=== PATIENT | female | born 1980 | race American Indian/Alaskan Native ===

== ENCOUNTER 2017-08-03 09:42 | Day surgery (SDC) | payer BC ==
[2016-11-26 11:15] VITALS: BMI 43.7
[2017-08-03] MEDS ORDERED: Sodium Chloride 0.9% 1,000 ML IV SCH (10:00)
[2017-08-03] MEDS ORDERED: Propofol 10 mg/ml Inj (20 ML) ONE (11:37)
[2017-08-03 12:43] VITALS: TEMP 98.1
[2017-08-03 14:30] VITALS: BP 108/56; PULSE 66; RESP 17; O2SAT 100
== END 2017-08-03 14:24 | disposition home or self-care (01) ==
LOC: ENDO 09:42
PROVIDERS: ATTEND Internal Medicine Gastroenterology
DX: K52.9 Noninfective gastroenteritis and colitis, unspecified (principal); K29.50 Unspecified chronic gastritis without bleeding; K21.9 Gastro-esophageal reflux disease without esophagitis; K64.8 Other hemorrhoids; Z90.3 Acquired absence of stomach [part of]
CPT/HCPCS: 43239; 45380; 84703; 88305; 88342; J2001; J2704; J3010; J7040 ×2

== ENCOUNTER 2018-08-05 10:32 | Emergency (ER) | payer BC ==
[2018-08-05 10:40] VITALS: RESP 18; BMI 48.2
--- NOTE | 2018-08-05 11:23 | ED PDOC ---
Arrival/HPI - General Time Seen by Provider: 08/05/18 10:58 Historian: Patient - History of Present Illness Narrative History of Present Illness (Text): 08/05/18 11:25 A 37 year old female, whose past medical history includes tubal ligation and gastric sleeve (1yr ago), presents to the emergency department complaining of body aches starting last night. Patient reports also experiencing headache, fatigue, and frequent urination. States she does not take any medications at home, and is requesting for pain medications. Patient denies any fever, cough, rhinorrhea, or any other complaints at this time. PMD: Dr. Unger Time/Duration: Other (since last night) Symptom Onset: Gradual Symptom Course: Unchanged Past Medical History - Provider Review Nursing Documentation Reviewed: Yes - Infectious Disease Hx of Infectious Diseases: None - Cardiac Hx Pacemaker: No - Neurological Hx Paralysis: No - Hematological/Oncological Hx Blood Transfusions: No Hx Blood Transfusion Reaction: No - Musculoskeletal/Rheumatological Hx Musculoskeletal Disorders: No - Psychiatric Hx Emotional Abuse: No Hx Physical Abuse: No Hx Substance Use: No - Surgical History Hx Section: Yes Hx Tubal Ligation: Yes Other/Comment: Gastric Sleeve one year ago, Lap Band 2008 - Anesthesia Hx Anesthesia Reactions: No Hx Malignant Hyperthermia: No - Suicidal Assessment Feels Threatened In Home Enviroment: No Family/Social History - Physician Review Nursing Documentation Reviewed: Yes Family/Social History: No Known Family HX Smoking Status: Never Smoked Hx Alcohol Use: No Hx Substance Use: No Hx Substance Use Treatment: No Allergies/Home Meds Allergies/Adverse Reactions: Allergies No Known Allergies Allergy (Verified 08/05/18 11:45) Home Medications: Home Meds Medication Instructions Recorded Confirmed Oxycodone HCl/Acetaminophen 1 each PO PRN PRN 08/05/18 08/05/18 [Percocet 10-325 mg Tablet] Review of Systems - Physician Review All systems were reviewed & negative as marked: Yes - Review of Systems Constitutional: Fatigue. absent: Fevers ENT: absent: Rhinorrhea Respiratory: absent: Cough Genitourinary Female: Frequency Musculoskeletal: Myalgias Neurological: Headache Physical Exam Vital Signs Reviewed: Yes Vital Signs Temp Pulse Resp BP Pulse Ox 08/05/18 14:42 98.6 F 82 18 135/69 97 08/05/18 12:33 88 18 132/69 99 08/05/18 10:39 99.6 F 95 H 18 139/73 100 Temperature: Afebrile Blood Pressure: Normal Pulse: Regular Respiratory Rate: Normal Appearance: Positive for: Well-Appearing, Non-Toxic, Comfortable, Other ( morbidly obese) Pain Distress: None Mental Status: Positive for: Alert and Oriented X 3 - Systems Exam Head: Present: Atraumatic, Normocephalic Pupils: Present: PERRL Extroacular Muscles: Present: EOMI Conjunctiva: Present: Normal Mouth: Present: Moist Mucous Membranes Neck: Present: Normal Range of Motion Respiratory/Chest: Present: Clear to Auscultation, Good Air Exchange. No: Respiratory Distress, Accessory Muscle Use Cardiovascular: Present: Regular Rate and Rhythm, Normal S1, S2. No: Murmurs Abdomen: No: Tenderness, Distention, Peritoneal Signs Back: Present: Normal Inspection Upper Extremity: Present: Normal Inspection. No: Cyanosis, Edema Lower Extremity: Present: Normal Inspection. No: Edema Neurological: Present: GCS=15, CN II-XII Intact, Speech Normal Skin: Present: Warm, Dry, Normal Color. No: Rashes Psychiatric: Present: Alert, Oriented x 3, Normal Insight, Normal Concentration Medical Decision Making ED Course and Treatment: 08/05/18 11:26 Impression: 37 year old female with body aches, headache, fatigue, and frequency. Physical exam shows patient appears morbidly obese; otherwise no other acute findings on examination. Plan: -- Labs -- Urinalysis -- Lower Extremity Ultrasound -- Tylenol -- Reassess and disposition Progress Notes: 08/05/18 17:22 urine pos. labs neg. us neg. vitals stable. updated dr live. states recent culture ecoli senstive to cephalosproin, resistent cipro. willbelkys dc with isamar . - Lab Interpretations Lab Results: 08/05/18 11:45 08/05/18 11:45 Lab Results 08/05/18 11:45: Urine Color Yellow, Urine Appearance Clear, Urine pH 6.0, Ur Specific [place] 1.025, Urine Protein Trace H, Urine Glucose (UA) Negative, Urine Ketones Negative, Urine Blood Large H, Urine Nitrate Negative, Urine Bilirubin Negative, Urine Urobilinogen 0.2, Ur Leukocyte Esterase Small H, Urine RBC 25 - 30, Urine WBC 5 - 10, Ur Epithelial Cells 6 - 8, Urine Bacteria Many, Urine Other Uyeast, Urine HCG, Qual Negative 08/05/18 11:45: Sodium 139, Potassium 4.3, Chloride 102, Carbon Dioxide 29, Anion Gap 13, BUN 7, Creatinine 0.8, Est GFR ( Amer) > 60, Est GFR (Non- Af Amer) > 60, Random Glucose 94, Calcium 9.2, Total Bilirubin 0.6, AST 23, ALT 18, Alkaline Phosphatase 69, Total Protein 8.7 H, Albumin 4.6, Globulin 4.1, Albumin/Globulin Ratio 1.1 08/05/18 11:45: PT 13.0 H, INR 1.13, APTT 28.2 08/05/18 11:45: WBC 7.6 D, RBC 4.55, Hgb 13.4, Hct 40.5, MCV 89.0, MCH 29.5, MCHC 33.1, RDW 12.7, Plt Count 250, MPV 10.3, Gran % 69.7 H, Lymph % (Auto) 19.7 L, [place] % (Auto) 10.0 H, Eos % (Auto) 0.5 L, Baso % (Auto) 0.1, Gran # 5.27 , Lymph # (Auto) 1.5, [place] # (Auto) 0.8 H, Eos # (Auto) 0.0, Baso # (Auto) 0.01 I have reviewed the lab results: Yes - RAD Interpretation Radiology Orders: 08/05/18 11:25 DUPLEX LOWER EXTRM VEIN BILAT [US] Stat - Medication Orders Current Medication Orders: Discontinued Medications Acetaminophen (Tylenol 325mg Tab) 975 mg PO STAT STA Stop: 08/05/18 11:26 Last Admin: 08/05/18 11:54 Dose: 975 mg Re-Assess: MAR Pain/Vitals Document 08/05/18 12:54 [facility] (Rec: 08/05/18 13:29 [facility] [id number]) Pain Reassessment Is This A Pain ReAssessment? Yes Sleep Is patient sleeping during reassessment? No Presence of Pain Presence of Pain No Sodium Chloride (Sodium Chloride 0.9%) 500 mls @ 999 mls/hr IV .Q31M STA Stop: 08/05/18 12:23 Last Admin: 08/05/18 11:58 Dose: 999 mls/hr eMAR Start Stop Document 08/05/18 11:58 [employer] (Rec: 08/05/18 11:58 [employer] [id number]) Intravenous Solution Start Date 08/05/18 Start Time 11:58 End Date 08/05/18 End time 12:28 Total Infusion Time 30 Ceftriaxone Sodium (Rocephin 1 Gram Ivpb) 1 gm in 100 mls @ 100 mls/hr IVPB STAT STA PRN Reason: Protocol Stop: 08/05/18 13:56 Last Admin: 08/05/18 13:36 Dose: 100 mls/hr eMAR Start Stop Document 08/05/18 13:36 [employer] (Rec: 08/05/18 13:36 [employer] [id number]) Intravenous Solution Start Date 08/05/18 Start Time 13:36 End Date 08/05/18 End time 14:06 Total Infusion Time 30 - Scribe Statement The provider has reviewed the documentation as recorded by the Breana Dolan Provider Scribe Attestation: All medical record entries made by the Gabeibenriqueta were at my direction and personally dictated by me. I have reviewed the chart and agree that the record accurately reflects my personal performance of the history, physical exam, medical decision making, and the department course for this patient. I have also personally directed, reviewed, and agree with the discharge instructions and disposition. Disposition/Present on Arrival - Present on Arrival Any Indicators Present on Arrival: No History of DVT/PE: Yes History of Uncontrolled Diabetes: No Urinary Catheter: No History Surgical Site Infection Following: Bariatric Surgery, None - Disposition Have Diagnosis and Disposition been Completed?: Yes Diagnosis: UTI (urinary tract infection) Disposition: HOME/ ROUTINE Disposition Time: 02:00 Condition: STABLE Discharge Instructions (ExitCare): Urinary Tract Infection, Adult (DC) Additional Instructions: please follow up with your doctor/clinic. return to er with worsening symptoms or concerns. please follow up with your doctor. Prescriptions: Cefpodoxime [Vantin] 100 mg PO BID #20 tab Forms: [employer] (Bulgarian)
[2018-08-05] MEDS ORDERED: Sodium Chloride 0.9% 500 ML IV STA (11:53)
[2018-08-05 12:06] LABS: BASO # 0.01 K/mm3 (0.0-2.0); BASO % 0.1 % (0.0-3.0); EOS % 0.5 % (1.5-5.0); GRAN # 5.27 (1.4-6.5); GRAN % 69.7 % (50.0-68.0); HEMOGLOBIN 13.4 g/dL (12.0-16.0); LYMPH # 1.5 (1.2-3.4); LYMPH % 19.7 % (22.0-35.0); MEAN CORPUSCULAR HEMOGLOBIN 29.5 pg (25.0-35.0); MEAN CORPUSCULAR HGB CONC 33.1 g/dl (31.0-37.0); MEAN PLATELET VOLUME 10.3 fl (7.0-11.0); MONO # 0.8 (0.1-0.6); RBC 4.55 10^6/uL (3.5-6.1); RED CELL DISTRIBUTION WIDTH 12.7 % (11.5-14.5); WHITE BLOOD COUNT 7.6 10^3/ul (4.5-11.0)
[2018-08-05 12:07] LABS: URINE BILIRUBIN NEGATIVE (NEGATIVE); URINE BLOOD LARGE (NEGATIVE); URINE GLUCOSE (UA) NEGATIVE (NEGATIVE); URINE LEUKOCYTE ESTERASE SMALL Leu/uL (NEGATIVE); URINE PROTEIN TRACE mg/dL (<30 mg/dL); URINE UROBILINOGEN 0.2 E.U./dL (<1 E.U./dL)
[2018-08-05 12:11] LABS: ALB/GLOB RATIO 1.1 (1.1-1.8); ALBUMIN 4.6 g/dL (3.0-4.8); ALT/SGPT 18 U/L (7-56); AST/SGOT 23 U/L (14-36); BLOOD UREA NITROGEN 7 mg/dL (7-21); CALCIUM 9.2 mg/dL (8.4-10.5); GFR NON-AFRICAN AMERICAN > 60
[2018-08-05 12:16] LABS: URINE APPEARANCE CLEAR (CLEAR); URINE COLOR YELLOW (YELLOW)
[2018-08-05 12:24] LABS: INR 1.13; PARTIAL THROMBOPLASTIN TIME 28.2 Seconds (25.1-36.5)
[2018-08-05 12:55] LABS: URINE RBC 25 - 30 /hpf (0-2)
[2018-08-05 12:56] LABS: HCG,QUALITATIVE URINE NEGATIVE (NEGATIVE); URINE BACTERIA MANY (NEG)
[2018-08-05] MEDS ORDERED: cefTRIAXone 1 gm 1 GM/100 ML BAG IVPB STA (12:57)
[2018-08-05 14:44] VITALS: BP 135/69; PULSE 82; TEMP 98.6; O2SAT 97
--- NOTE | 2018-08-05 18:19 | US ---
HISTORY: Leg pain and swelling. Evaluate for DVT PHYSICIAN(S): Mack Mistry MD. TECHNIQUE: Duplex sonography and color-flow Doppler with graded compression were used to evaluate the deep venous systems of both lower extremities. The exam is limited by body habitus and edema FINDINGS: The visualized deep venous systems of both lower extremities are sonographically normal and compressible. Normal wave forms and augmentation are seen. There is no sonographic evidence for deep venous thrombosis in the visualized segments of both lower extremities. IMPRESSION: No sonographic evidence for deep venous thrombosis in the visualized segments of both lower extremities.
== END 2018-08-05 14:45 | disposition home or self-care (01) ==
LOC: ED 10:32
DX: N39.0 Urinary tract infection, site not specified (principal); Z98.84 Bariatric surgery status; Z98.51 Tubal ligation status
CPT/HCPCS: 80053; 81001; 84703; 85025; 85610; 85730; 87086; 93970; 96365; 99285; J0696; J7040

== ENCOUNTER 2018-12-25 09:06 | Outpatient (CLI) | payer BC | END 2018-12-25 09:07 | disposition home or self-care (01) | LOC: RAD 09:06 ==